=== PATIENT | male | born 1970 | race African-American/Black ===

== ENCOUNTER 2020-07-27 21:05 | Inpatient (IN) ==
[2020-07-27] MEDS: 0.9 % Sodium Chloride 1,000 ML IVC SCH ×2 (22:04→22:51)
[2020-07-27 22:06] LABS: VBG HCO3 26 mEq/L (21-27); VBG PCO2 44 mmHg (41-51); VBG PH 7.39 pH Units (7.32-7.42); VBG PO2 30 mmHg (25-50)
[2020-07-27 22:06] LABS: Basophils % 0.2 %; Eosinophils % 0.1 %; Hematocrit 45.6 % (37.5-50.1); Hemoglobin 15.3 g/dL (12.9-16.9); Immature Granulocytes % 0.5 % (0-4); Lymphocytes # 0.9 K/mcL (0.6-4.6); Lymphocytes % 6.8 %; Mean Corpuscular HGB Conc 33.6 g/dL (31.6-35.5); Mean Corpuscular Hemoglobin 29.4 pg (28.0-33.3); Mean Corpuscular Volume 87.5 fL (83.0-100.0); Mean Platelet Volume 9.3 fL (9.4-12.4); Monocytes % 7.8 %; Neutrophils # 10.9 K/mcL (1.6-8.9); Platelet Count 267 K/mcL (140-400); Red Blood Count 5.21 M/mcL (4.19-5.50); Red Cell Distribution Width 12.5 % (11.5-14.5); Segmented Neutrophils % 84.6 %; White Blood Count 12.9 K/mcL (4.3-11.1)
[2020-07-27 22:26] LABS: Alanine Aminotransferase 26 Units/L (7-52); Albumin/Globulin Ratio 1.2 (1.1-2.2); Alkaline Phosphatase 75 Units/L (34-104); Aspartate Amino Transferase 18 Units/L (13-39); BUN/Creatinine Ratio 10 (6-26); Bilirubin,Total 0.5 mg/dL (0.3-1.0); Blood Urea Nitrogen 10 mg/dL (6-20); Calcium 9.5 mg/dL (8.6-10.3); Carbon Dioxide 24 mEq/L (23-29); Chloride 97 mEq/L (98-107); Globulin 3.3 g/dL (2.4-3.5); Glucose 389 mg/dL (70-105); Magnesium 1.6 mg/dL (1.6-2.6); Osmolality,Calculated 289 (280-300); Potassium 3.9 mEq/L (3.5-5.1); Sodium 132 mEq/L (136-145); Total Protein 7.3 g/dL (6.4-8.9); Troponin I < 0.03 ng/mL (< 0.04); eGFR For African Americans > 60 (> 60); eGFR For Non-African Americans > 60 (> 60)
[2020-07-27] MEDS ORDERED: Acetaminophen 325 MG TABLET PO ONE (22:49)
[2020-07-27 22:58] LABS: Bacteria,Urine Few per hpf (None-Few); Bilirubin,Urine Negative (Negative); Blood,Urine Negative (Negative); Clarity,Urine Clear (Clear); Color,Urine Light-Yellow (Yellow); Glucose,Urine (UA) >=1000 mg/dL (Normal); Ketones,Urine Negative (Negative); Leukocyte Esterase,Urine Negative (Negative); Mucus,Urine Few per lpf (None-Few); Nitrite,Urine Negative (Negative); Protein,Urine Negative (Neg-Trace); RBC,Urine 0-3 per hpf (0-3); Specific Gravity,Urine > 1.030 (1.010-1.025); Urobilinogen,Urine Normal (Normal); WBC,Urine 0-3 per hpf (0-3)
[2020-07-27 23:11] LABS: Adenovirus Not Detected (Not Detect); Bordetella Pertussis Not Detected (Not Detect); Chlamydophila pneumoniae Not Detected (Not Detect); Coronavirus 229E Not Detected (Not Detect); Coronavirus HKU1 Not Detected (Not Detect); Coronavirus NL63 Not Detected (Not Detect); Coronavirus OC43 Not Detected (Not Detect); Human Metapneumovirus Not Detected (Not Detect); Human Rhinovirus/Enterovirus Not Detected (Not Detect); Influenza A Subtype 2009 H1 Not Detected (Not Detect); Influenza B Not Detected (Not Detect); Mycoplasma pneumoniae Not Detected (Not Detect); Parainfluenza Virus 1 Not Detected (Not Detect); Parainfluenza Virus 2 Not Detected (Not Detect); Parainfluenza Virus 3 Not Detected (Not Detect); Parainfluenza Virus 4 Not Detected (Not Detect); Respiratory Syncytial Virus Not Detected (Not Detect); SARS-CoV-2 Not Detected (Not Detect)
[2020-07-28] MEDS ORDERED: 0.9 % Sodium Chloride 1,000 ML IVC ONE (01:33)
[2020-07-28] MEDS ORDERED: Isovue-370 500 ML BOTTLE IVP ONE ×2 (02:35→05:59)
[2020-07-28] MEDS ORDERED: Acetaminophen 325 MG TABLET PO PRN (04:28)
[2020-07-28] MEDS ORDERED: Naloxone 0.4 MG/ML INJ IVP PRN (04:28)
[2020-07-28] MEDS ORDERED: *HR* Dextrose 50 % in Water (Vial) 50 ML VIAL IVP PRN ×2 (05:27→19:14)
[2020-07-28] MEDS ORDERED: Dextrose Gel 15 GM/37.5 ML TUBE PO PRN ×4 (05:27→19:14)
[2020-07-28] MEDS ORDERED: Insulin DETEMIR 100 UNIT/ML X5UNITS SQ STA (05:27)
[2020-07-28] MEDS ORDERED: D5% in Water 1,000 ML IVC PRN ×2 (05:27→19:14)
[2020-07-28] MEDS: 0.9 % Sodium Chloride 1,000 ML IVC SCH ×3 (05:47→21:20)
[2020-07-28 05:51] LABS: Basophils % 0.2 %; Hematocrit 44.5 % (37.5-50.1); Hemoglobin 14.2 g/dL (12.9-16.9); Immature Granulocytes % 0.6 % (0-4); Lymphocytes # 1.2 K/mcL (0.6-4.6); Lymphocytes % 8.7 %; Mean Corpuscular HGB Conc 31.9 g/dL (31.6-35.5); Mean Corpuscular Hemoglobin 28.2 pg (28.0-33.3); Mean Corpuscular Volume 88.3 fL (83.0-100.0); Mean Platelet Volume 9.3 fL (9.4-12.4); Monocytes # 1.2 K/mcL (0.0-1.3); Monocytes % 8.8 %; Neutrophils # 11.5 K/mcL (1.6-8.9); Platelet Count 235 K/mcL (140-400); Red Blood Count 5.04 M/mcL (4.19-5.50); Red Cell Distribution Width 12.5 % (11.5-14.5); Segmented Neutrophils % 81.7 %; White Blood Count 14.1 K/mcL (4.3-11.1)
[2020-07-28] MEDS ORDERED: Ampicillin/Sulbactam 3,000 MG in 0.9 % Sodium Chloride Mini Bag 100 ML IVPB SCH (06:00)
[2020-07-28 06:13] LABS: BUN/Creatinine Ratio 11 (6-26); Blood Urea Nitrogen 9 mg/dL (6-20); Calcium 8.8 mg/dL (8.6-10.3); Carbon Dioxide 25 mEq/L (23-29); Chloride 102 mEq/L (98-107); Glucose 251 mg/dL (70-105); Osmolality,Calculated 287 (280-300); Potassium 3.6 mEq/L (3.5-5.1); Sodium 135 mEq/L (136-145); eGFR For African Americans > 60 (> 60); eGFR For Non-African Americans > 60 (> 60)
[2020-07-28] MEDS: *HR* Heparin 5,000 UNIT/ML VIAL SQ SCH ×2 (06:28→17:27)
[2020-07-28] MEDS ORDERED: cefTRIAXone 2,000 MG in Water for inj. (sterile) 20 ML IVP SCH (07:00)
[2020-07-28] MEDS ORDERED: Vancomycin 1,500 MG/265 ML IV.SOLN IVPB ONE (07:14)
[2020-07-28 08:33] LABS: C-Reactive Protein 107 mg/L (Less than 10)
[2020-07-28 08:51] LABS: Estimated Average Glucose 312 mg/dl
[2020-07-28] MEDS: hydroCHLOROthiazide 25 MG TABLET PO SCH (10:30)
[2020-07-28] MEDS: lisinopriL 20 MG TABLET PO SCH (10:30)
[2020-07-28] MEDS: atenoloL 50 MG TABLET PO SCH (10:30)
[2020-07-28] MEDS: Insulin LISPRO 300 UNITS/3 ML VIAL SQ SCH ×4 (10:30→21:18)
[2020-07-28] MEDS ORDERED: Acetaminophen IV 1,000 MG/100 ML INFUS..BTL IVPB ONE (10:37)
[2020-07-28] MEDS ORDERED: Dexamethasone 4 MG/ML VIAL IVP ONE (11:16)
[2020-07-28] MEDS: Ampicillin/Sulbactam 3,000 MG in 0.9 % Sodium Chloride Mini Bag 100 ML IVPB SCH ×2 (12:13→17:27)
[2020-07-28] MEDS: Pantoprazole 40 MG VIAL IVP SCH (17:26)
[2020-07-28] MEDS: Dexamethasone 4 MG/ML VIAL IVP SCH (17:26)
[2020-07-28] MEDS ORDERED: Vancomycin 1,500 MG/265 ML IV.SOLN IVPB SCH (21:00)
[2020-07-28] MEDS ORDERED: Insulin LISPRO 300 UNITS/3 ML VIAL SQ SCH ×2 (21:00)
[2020-07-28] MEDS ORDERED: Insulin DETEMIR 100 UNIT/ML X5UNITS SQ SCH ×3 (21:00)
[2020-07-29] MEDS: Dexamethasone 4 MG/ML VIAL IVP SCH ×2 (00:10→06:03)
[2020-07-29] MEDS: 0.9 % Sodium Chloride 1,000 ML IVC SCH ×2 (00:10→10:00)
[2020-07-29] MEDS: Ampicillin/Sulbactam 3,000 MG in 0.9 % Sodium Chloride Mini Bag 100 ML IVPB SCH ×3 (00:11→13:37)
[2020-07-29] MEDS: Pantoprazole 40 MG VIAL IVP SCH (06:03)
[2020-07-29] MEDS: *HR* Heparin 5,000 UNIT/ML VIAL SQ SCH (06:10)
[2020-07-29] MEDS: hydroCHLOROthiazide 25 MG TABLET PO SCH (09:06)
[2020-07-29] MEDS: atenoloL 50 MG TABLET PO SCH (09:06)
[2020-07-29] MEDS: lisinopriL 20 MG TABLET PO SCH (09:06)
[2020-07-29] MEDS: Insulin LISPRO 300 UNITS/3 ML VIAL SQ SCH ×2 (09:06→13:36)
[2020-07-29 09:50] LABS: Basophils % 0.1 %; Hematocrit 44.2 % (37.5-50.1); Hemoglobin 14.4 g/dL (12.9-16.9); Immature Granulocytes % 0.5 % (0-4); Lymphocytes # 1.4 K/mcL (0.6-4.6); Mean Corpuscular HGB Conc 32.6 g/dL (31.6-35.5); Mean Corpuscular Hemoglobin 28.4 pg (28.0-33.3); Mean Corpuscular Volume 87.2 fL (83.0-100.0); Mean Platelet Volume 9.7 fL (9.4-12.4); Monocytes # 0.9 K/mcL (0.0-1.3); Monocytes % 4.6 %; Neutrophils # 17.6 K/mcL (1.6-8.9); Platelet Count 243 K/mcL (140-400); Red Blood Count 5.07 M/mcL (4.19-5.50); Red Cell Distribution Width 12.7 % (11.5-14.5); Segmented Neutrophils % 87.8 %
[2020-07-29 10:02] LABS: BUN/Creatinine Ratio 20 (6-26); Blood Urea Nitrogen 12 mg/dL (6-20); Calcium 9.1 mg/dL (8.6-10.3); Carbon Dioxide 24 mEq/L (23-29); Chloride 104 mEq/L (98-107); Glucose 244 mg/dL (70-105); Osmolality,Calculated 296 (280-300); Potassium 3.9 mEq/L (3.5-5.1); Sodium 139 mEq/L (136-145); eGFR For African Americans > 60 (> 60); eGFR For Non-African Americans > 60 (> 60)
[2020-07-29 11:27] VITALS: BP 126/83
[2020-07-29] MEDS ORDERED: Dexamethasone 4 MG/ML VIAL IVP SCH (16:00)
== END 2020-07-29 16:28 | disposition home or self-care (01) | DRG 720 ==
LOC: EMEROOARM 21:05 → CDU 21:05 → SUATTDRO 07-28 03:42 → CDU 07-28 04:02 → SUATTDRO 07-28 12:55 → 3ANU 07-28 18:36
PROVIDERS: ADMIT Internal Medicine; ATTEND Student in an Organized Health Care Education/Training Program

== ENCOUNTER 2020-12-05 21:50 | Observation (INO) ==
[2020-12-05] MEDS ORDERED: cefTRIAXone 1,000 MG in Water for inj. (sterile) 10 ML IVP ONE (22:02)
[2020-12-05] MEDS ORDERED: Azithromycin 500 MG in 0.9 % Sodium Chloride 250 ML IVPB ONE (22:02)
[2020-12-05 22:31] LABS: Basophils % 0.3 %; Eosinophils % 0.3 %; Hemoglobin 13.9 g/dL (12.9-16.9); Immature Granulocytes % 0.5 % (0-4); Lymphocytes # 1.7 K/mcL (0.6-4.6); Lymphocytes % 14.3 %; Mean Corpuscular HGB Conc 33.9 g/dL (31.6-35.5); Mean Corpuscular Hemoglobin 28.8 pg (28.0-33.3); Mean Corpuscular Volume 84.9 fL (83.0-100.0); Mean Platelet Volume 9.3 fL (9.4-12.4); Monocytes % 8.5 %; Neutrophils # 9.1 K/mcL (1.6-8.9); Platelet Count 279 K/mcL (140-400); Red Blood Count 4.83 M/mcL (4.19-5.50); Red Cell Distribution Width 12.4 % (11.5-14.5); Segmented Neutrophils % 76.1 %; White Blood Count 11.9 K/mcL (4.3-11.1)
[2020-12-05 22:40] LABS: VBG HCO3 23 mEq/L (21-27); VBG PCO2 31 mmHg (41-51); VBG PH 7.47 pH Units (7.32-7.42); VBG PO2 71 mmHg (25-50)
[2020-12-05 22:57] LABS: BUN/Creatinine Ratio 14 (6-26); Blood Urea Nitrogen 13 mg/dL (6-20); Calcium 9.3 mg/dL (8.6-10.3); Carbon Dioxide 24 mEq/L (23-29); Chloride 103 mEq/L (98-107); Glucose 282 mg/dL (70-105); Magnesium 1.5 mg/dL (1.6-2.6); Osmolality,Calculated 288 (280-300); Phosphorous < 1.0 mg/dL (2.7-4.5); Potassium 3.8 mEq/L (3.5-5.1); Sodium 134 mEq/L (136-145); eGFR For African Americans > 60 (> 60); eGFR For Non-African Americans > 60 (> 60)
[2020-12-05] MEDS: 0.9 % Sodium Chloride 1,000 ML IVC SCH (23:01)
[2020-12-05] MEDS ORDERED: Potassium Phosphate 44 MEQ in 0.9 % Sodium Chloride 250 ML IVPB ONE (23:08)
[2020-12-05] MEDS ORDERED: 0.9 % Sodium Chloride 1,000 ML IVC ONE (23:37)
[2020-12-05 23:50] LABS: Adenovirus Not Detected (Not Detect); Bordetella Pertussis Not Detected (Not Detect); Chlamydophila pneumoniae Not Detected (Not Detect); Coronavirus 229E Not Detected (Not Detect); Coronavirus HKU1 Not Detected (Not Detect); Coronavirus NL63 Not Detected (Not Detect); Coronavirus OC43 Not Detected (Not Detect); Human Metapneumovirus Not Detected (Not Detect); Human Rhinovirus/Enterovirus Not Detected (Not Detect); Influenza A Subtype 2009 H1 Not Detected (Not Detect); Influenza B Not Detected (Not Detect); Mycoplasma pneumoniae Not Detected (Not Detect); Parainfluenza Virus 1 Not Detected (Not Detect); Parainfluenza Virus 2 Not Detected (Not Detect); Parainfluenza Virus 3 Not Detected (Not Detect); Parainfluenza Virus 4 Not Detected (Not Detect); Respiratory Syncytial Virus Not Detected (Not Detect); SARS-CoV-2 Not Detected (Not Detect)
[2020-12-06] MEDS ORDERED: Ibuprofen 400 MG TABLET PO ONE (00:09)
[2020-12-06 01:03] LABS: Bilirubin,Urine Negative (Negative); Blood,Urine Negative (Negative); Clarity,Urine Clear (Clear); Color,Urine Yellow (Yellow); Glucose,Urine (UA) >=1000 mg/dL (Normal); Ketones,Urine Trace mg/dL (Negative); Leukocyte Esterase,Urine Negative (Negative); Mucus,Urine Few per lpf (None-Few); Nitrite,Urine Negative (Negative); Protein,Urine 30 mg/dL (Neg-Trace); Specific Gravity,Urine > 1.030 (1.010-1.025); WBC,Urine 0-3 per hpf (0-3)
[2020-12-06] MEDS ORDERED: Isovue-370 500 ML BOTTLE IVP ONE (01:38)
[2020-12-06] MEDS ORDERED: Naloxone 0.4 MG/ML INJ IVP PRN (01:45)
[2020-12-06] MEDS ORDERED: Ondansetron 4 MG/2 ML VIAL IVP PRN (01:45)
[2020-12-06] MEDS ORDERED: *HR* Dextrose 50 % in Water (Vial) 50 ML VIAL IVP PRN (02:34)
[2020-12-06] MEDS ORDERED: D5% in Water 1,000 ML IVC PRN (02:34)
[2020-12-06] MEDS ORDERED: Dextrose Gel 15 GM/37.5 ML TUBE PO PRN ×2 (02:34)
[2020-12-06] MEDS: 0.9 % Sodium Chloride 1,000 ML IVC SCH (03:25)
[2020-12-06] MEDS: Ringers Solution, Lactated 1,000 ML IVC SCH ×2 (05:03→15:04)
[2020-12-06 06:21] LABS: Basophils % 0.3 %; Eosinophils % 0.1 %; Hemoglobin 13.2 g/dL (12.9-16.9); Immature Granulocytes % 0.5 % (0-4); Lymphocytes # 1.4 K/mcL (0.6-4.6); Lymphocytes % 11.6 %; Mean Corpuscular HGB Conc 33.8 g/dL (31.6-35.5); Mean Corpuscular Hemoglobin 28.8 pg (28.0-33.3); Mean Platelet Volume 8.8 fL (9.4-12.4); Monocytes # 1.2 K/mcL (0.0-1.3); Monocytes % 9.6 %; Neutrophils # 9.3 K/mcL (1.6-8.9); Platelet Count 246 K/mcL (140-400); Red Blood Count 4.59 M/mcL (4.19-5.50); Red Cell Distribution Width 12.6 % (11.5-14.5); Segmented Neutrophils % 77.9 %; White Blood Count 11.9 K/mcL (4.3-11.1)
[2020-12-06] MEDS: *HR* Heparin 5,000 UNIT/ML VIAL SQ SCH ×2 (06:36→17:43)
[2020-12-06 06:37] LABS: Alanine Aminotransferase 14 Units/L (7-52); Albumin 3.6 g/dL (3.5-5.7); Albumin/Globulin Ratio 1.3 (1.1-2.2); Alkaline Phosphatase 55 Units/L (34-104); Aspartate Amino Transferase 14 Units/L (13-39); BUN/Creatinine Ratio 14 (6-26); Bilirubin,Direct 0.1 mg/dL (0.0-0.2); Bilirubin,Indirect 0.3 mg/dL (0.0-1.0); Bilirubin,Total 0.4 mg/dL (0.3-1.0); Blood Urea Nitrogen 11 mg/dL (6-20); Calcium 8.3 mg/dL (8.6-10.3); Carbon Dioxide 23 mEq/L (23-29); Chloride 105 mEq/L (98-107); Globulin 2.8 g/dL (2.4-3.5); Glucose 180 mg/dL (70-105); Osmolality,Calculated 282 (280-300); Potassium 3.4 mEq/L (3.5-5.1); Sodium 134 mEq/L (136-145); Total Protein 6.4 g/dL (6.4-8.9); eGFR For African Americans > 60 (> 60); eGFR For Non-African Americans > 60 (> 60)
[2020-12-06] MEDS: Doxycycline 100 MG CAPSULE PO SCH ×2 (08:29→22:07)
[2020-12-06] MEDS: Piperacillin/Tazobactam 3.375 GM in 0.9 % Sodium Chloride Mini Bag 100 ML IVPB SCH ×2 (08:29→15:04)
[2020-12-06] MEDS: Insulin LISPRO 300 UNITS/3 ML VIAL SUBQ SCH ×3 (08:30→17:44)
[2020-12-06] MEDS ORDERED: cefTRIAXone 2,000 MG in Water for inj. (sterile) 20 ML IVP SCH (09:00)
[2020-12-06 10:15] LABS: Amphetamine Screen,Urine Positive ng/mL (Cutoff=1000); Barbiturate Screen,Urine Negative ng/mL (Cutoff=200); Benzodiazepines Screen,Urine Negative ng/mL (Cutoff=200); Cannabinoid Screen,Urine Negative ng/mL (Cutoff = 50); Cocaine Screen,Urine Negative ng/mL (Cutoff= 300); Opiate Screen,Urine Negative ng/mL (Cutoff=300); Phencyclidine Screen,Urine Negative ng/mL (Cutoff=25)
[2020-12-06] MEDS: MethylPREDNISolone 40 MG/ML VIAL IVP SCH (15:03)
[2020-12-06] MEDS ORDERED: Loratadine 10 MG TABLET PO PRN (15:59)
[2020-12-06] MEDS: lisinopriL 20 MG TABLET PO SCH (16:09)
[2020-12-06] MEDS: atenoloL 50 MG TABLET PO SCH (16:09)
[2020-12-06] MEDS ORDERED: Azithromycin 500 MG in 0.9 % Sodium Chloride 250 ML IVPB SCH (18:00)
[2020-12-06] MEDS ORDERED: NON-FORMULARY MEDICATION 1 EACH EACH (Insulin Detemir [Levemir Flextouch] 50 UNIT) SQ SCH (21:00)
[2020-12-06] MEDS ORDERED: Insulin DETEMIR 100 UNIT/ML X5UNITS SUBQ SCH (21:00)
[2020-12-06] MEDS ORDERED: NON-FORMULARY MEDICATION 1 EACH EACH (Insulin Detemir [Levemir Flextouch] 30 UNIT) SQ SCH (21:00)
[2020-12-06] MEDS: Insulin DETEMIR 100 UNIT/ML X5UNITS SUBQ SCH (22:07)
[2020-12-07] MEDS ORDERED: Chloraseptic Spray 177 ML BOTTLE MM PRN (01:02)
[2020-12-07] MEDS: MethylPREDNISolone 40 MG/ML VIAL IVP SCH ×3 (01:05→17:20)
[2020-12-07] MEDS: Piperacillin/Tazobactam 3.375 GM in 0.9 % Sodium Chloride Mini Bag 100 ML IVPB SCH ×3 (01:06→17:21)
[2020-12-07 02:40] LABS: Hematocrit 40.6 % (37.5-50.1); Hemoglobin 13.5 g/dL (12.9-16.9); Mean Corpuscular HGB Conc 33.3 g/dL (31.6-35.5); Mean Corpuscular Hemoglobin 28.8 pg (28.0-33.3); Mean Corpuscular Volume 86.8 fL (83.0-100.0); Mean Platelet Volume 9.4 fL (9.4-12.4); Platelet Count 272 K/mcL (140-400); Red Blood Count 4.68 M/mcL (4.19-5.50); Red Cell Distribution Width 12.6 % (11.5-14.5); White Blood Count 13.1 K/mcL (4.3-11.1)
[2020-12-07 02:57] LABS: BUN/Creatinine Ratio 11 (6-26); Blood Urea Nitrogen 9 mg/dL (6-20); Carbon Dioxide 23 mEq/L (23-29); Chloride 103 mEq/L (98-107); Glucose 268 mg/dL (70-105); Magnesium 1.6 mg/dL (1.6-2.6); Osmolality,Calculated 288 (280-300); Phosphorous 3.5 mg/dL (2.7-4.5); Potassium 4.3 mEq/L (3.5-5.1); Sodium 135 mEq/L (136-145); eGFR For African Americans > 60 (> 60); eGFR For Non-African Americans > 60 (> 60)
[2020-12-07] MEDS: *HR* Heparin 5,000 UNIT/ML VIAL SQ SCH ×2 (06:27→17:20)
[2020-12-07] MEDS: Insulin LISPRO 300 UNITS/3 ML VIAL SUBQ SCH ×3 (08:52→17:20)
[2020-12-07] MEDS: Doxycycline 100 MG CAPSULE PO SCH ×2 (08:54→21:40)
[2020-12-07] MEDS: atenoloL 50 MG TABLET PO SCH (08:54)
[2020-12-07] MEDS: lisinopriL 20 MG TABLET PO SCH (09:03)
[2020-12-07] MEDS: Insulin DETEMIR 100 UNIT/ML X5UNITS SUBQ SCH (21:41)
[2020-12-07] MEDS ORDERED: Insulin LISPRO 300 UNITS/3 ML VIAL SUBQ SCH (21:45)
[2020-12-08] MEDS: Piperacillin/Tazobactam 3.375 GM in 0.9 % Sodium Chloride Mini Bag 100 ML IVPB SCH ×2 (00:24→07:43)
[2020-12-08] MEDS: MethylPREDNISolone 40 MG/ML VIAL IVP SCH ×2 (00:24→07:44)
[2020-12-08] MEDS: *HR* Heparin 5,000 UNIT/ML VIAL SQ SCH (05:35)
[2020-12-08 05:39] VITALS: BP 148/86
[2020-12-08] MEDS: lisinopriL 20 MG TABLET PO SCH (07:42)
[2020-12-08] MEDS: Doxycycline 100 MG CAPSULE PO SCH (07:42)
[2020-12-08] MEDS: atenoloL 50 MG TABLET PO SCH (07:43)
[2020-12-08] MEDS: Insulin LISPRO 300 UNITS/3 ML VIAL SUBQ SCH ×2 (07:43→11:36)
== END 2020-12-08 16:22 | disposition home or self-care (01) ==
LOC: 3ANU 21:50 → EMEROOARM 21:50 → SUATTDRO 12-06 02:17 → 3ANU 12-06 03:45
PROVIDERS: ADMIT Internal Medicine; ATTEND Internal Medicine

== ENCOUNTER 2021-08-06 13:54 | Inpatient (IN) ==
[2021-08-06 14:31] LABS: Basophils % 0.4 %; Eosinophils # 0.1 K/mcL (0.0-0.6); Eosinophils % 0.8 %; Hematocrit 49.9 % (37.5-50.1); Hemoglobin 16.6 g/dL (12.9-16.9); Immature Granulocytes % 0.2 % (0-4); Lymphocytes % 28.9 %; Mean Corpuscular HGB Conc 33.3 g/dL (31.6-35.5); Mean Corpuscular Hemoglobin 28.9 pg (28.0-33.3); Mean Corpuscular Volume 86.8 fL (83.0-100.0); Monocytes # 0.8 K/mcL (0.0-1.3); Monocytes % 8.1 %; Neutrophils # 6.4 K/mcL (1.6-8.9); Platelet Count 375 K/mcL (140-400); Red Blood Count 5.75 M/mcL (4.19-5.50); Red Cell Distribution Width 12.5 % (11.5-14.5); Segmented Neutrophils % 61.6 %; White Blood Count 10.3 K/mcL (4.3-11.1)
[2021-08-06 14:52] LABS: Acetaminophen < 10 mcg/mL (10-20); BUN/Creatinine Ratio 15 (6-26); Blood Urea Nitrogen 14 mg/dL (6-20); Carbon Dioxide 26 mEq/L (23-29); Chloride 101 mEq/L (98-107); Cholesterol 154 mg/dL (< 200); Glucose 328 mg/dL (70-105); HDL Cholesterol 51 mg/dL (40-59); LDL Cholesterol,Calculated 79 mg/dL (< 100); Osmolality,Calculated 291 (280-300); Potassium 4.4 mEq/L (3.5-5.1); Salicylate < 2.5 mg/dL (15.0-30.0); Sodium 134 mEq/L (136-145); Triglycerides 119 mg/dL (< 150); eGFR For African Americans > 60 (> 60); eGFR For Non-African Americans > 60 (> 60)
[2021-08-06 15:09] LABS: Ethanol < 10 mg/dL (Less than 10)
[2021-08-06 15:26] LABS: Bilirubin,Urine Negative (Negative); Blood,Urine Trace (Negative); Clarity,Urine Clear (Clear); Color,Urine Light-Yellow (Yellow); Glucose,Urine (UA) >=1000 mg/dL (Normal); Ketones,Urine 20 mg/dL (Negative); Leukocyte Esterase,Urine Negative (Negative); Mucus,Urine Few per lpf (None-Few); Nitrite,Urine Negative (Negative); Protein,Urine Trace mg/dL (Neg-Trace); RBC,Urine 0-3 per hpf (0-3); Specific Gravity,Urine > 1.030 (1.010-1.025); Urobilinogen,Urine Normal (Normal); WBC,Urine 0-3 per hpf (0-3)
[2021-08-06] MEDS: 0.9 % Sodium Chloride 1,000 ML IVC SCH ×2 (15:31→16:14)
[2021-08-06 15:38] LABS: Amphetamine Screen,Urine Positive ng/mL (Cutoff=1000); Barbiturate Screen,Urine Negative ng/mL (Cutoff=200); Benzodiazepines Screen,Urine Negative ng/mL (Cutoff=200); Cannabinoid Screen,Urine Negative ng/mL (Cutoff = 50); Cocaine Screen,Urine Negative ng/mL (Cutoff= 300); Opiate Screen,Urine Negative ng/mL (Cutoff=300); Phencyclidine Screen,Urine Negative ng/mL (Cutoff=25)
[2021-08-06 16:07] LABS: Estimated Average Glucose 235 mg/dl; Hemoglobin A1C 9.8 %
[2021-08-06 19:59] LABS: Influenza A PCR Negative (Negative); Influenza B PCR Negative (Negative); Resp. Syncytial Virus PCR Negative (Negative)
[2021-08-06 20:01] LABS: SARS-CoV-2 by PCR (In House) Negative (Negative)
[2021-08-06] MEDS ORDERED: Acetaminophen 325 MG TABLET PO PRN (20:55)
[2021-08-06] MEDS ORDERED: Haloperidol Lactate 5 MG/ML VIAL IM PRN (20:55)
[2021-08-06] MEDS ORDERED: Ibuprofen 400 MG TABLET PO PRN (20:55)
[2021-08-06] MEDS ORDERED: haloperidoL 5 MG TABLET PO PRN (20:55)
[2021-08-06] MEDS ORDERED: hydrOXYzine pamoate 25 MG CAPSULE PO PRN (20:55)
[2021-08-06] MEDS ORDERED: *HR* LORazepam 2 MG/ML VIAL IM PRN (20:55)
[2021-08-06] MEDS ORDERED: *HR* LORazepam 1 MG TABLET PO PRN (20:55)
[2021-08-06] MEDS: QUEtiapine Fumarate 25 MG TABLET PO PRN (22:02)
[2021-08-07] MEDS: Insulin DETEMIR 100 UNIT/ML X5UNITS SUBQ SCH ×2 (00:23→21:14)
[2021-08-07] MEDS ORDERED: Mag Hydrox/Al Hydrox/Simeth 30 ML UDC PO PRN (08:25)
[2021-08-07] MEDS ORDERED: MOM Conc 10 ML UD.LIQ PO PRN (08:25)
[2021-08-07] MEDS ORDERED: *HR* GlyBURIDE 5 MG TABLET PO SCH (09:00)
[2021-08-07] MEDS ORDERED: lisinopriL 20 MG TABLET PO SCH (09:00)
[2021-08-07] MEDS ORDERED: ARIPiprazole 5 MG TABLET PO SCH (14:00)
[2021-08-07] MEDS ORDERED: hydroCHLOROthiazide 25 MG TABLET PO SCH (14:30)
[2021-08-07] MEDS ORDERED: QUEtiapine Fumarate 25 MG TABLET PO SCH (21:00)
[2021-08-07] MEDS: QUEtiapine Fumarate 25 MG TABLET PO PRN (21:44)
[2021-08-08] MEDS ORDERED: Isovue-370 500 ML BOTTLE IVP ONE (06:53)
[2021-08-08 06:58] VITALS: BP 110/80; PULSE 77; TEMP 97.8; O2SAT 99
== END 2021-08-08 07:00 | disposition short-term general hospital (02) | DRG 751 ==
LOC: EMEROOARM 13:54 → 1ANU 20:54
PROVIDERS: ADMIT Psychiatry & Neurology Psychiatry; ATTEND Psychiatry & Neurology Psychiatry

== ENCOUNTER 2021-08-08 07:46 | Observation (INO) ==
[2021-08-08] MEDS ORDERED: Naloxone 0.4 MG/ML INJ IVP PRN (08:31)
[2021-08-08] MEDS ORDERED: Ondansetron 4 MG/2 ML VIAL IVP PRN (08:31)
[2021-08-08] MEDS ORDERED: Perflutren Lipid Microsphere 1.3 ML in 0.9 % Sodium Chloride 8.7 ML IVP PRN (08:37)
[2021-08-08] MEDS ORDERED: Dextrose Gel 15 GM/37.5 ML TUBE PO PRN ×2 (08:47)
[2021-08-08] MEDS ORDERED: D5% in Water 1,000 ML IVC PRN (08:47)
[2021-08-08] MEDS ORDERED: *HR* Dextrose 50 % in Water (Syg) 50 ML SYRINGE IVP PRN (08:47)
[2021-08-08] MEDS: Insulin LISPRO 300 UNITS/3 ML VIAL SUBQ SCH ×3 (09:00→16:18)
[2021-08-08 09:41] LABS: Basophils % 0.4 %; Eosinophils # 0.2 K/mcL (0.0-0.6); Eosinophils % 2.1 %; Hematocrit 44.7 % (37.5-50.1); Immature Granulocytes % 0.2 % (0-4); Lymphocytes # 4.2 K/mcL (0.6-4.6); Lymphocytes % 43.8 %; Mean Corpuscular HGB Conc 33.3 g/dL (31.6-35.5); Mean Corpuscular Hemoglobin 29.2 pg (28.0-33.3); Mean Corpuscular Volume 87.6 fL (83.0-100.0); Mean Platelet Volume 9.5 fL (9.4-12.4); Monocytes # 0.8 K/mcL (0.0-1.3); Monocytes % 7.8 %; Neutrophils # 4.4 K/mcL (1.6-8.9); Platelet Count 351 K/mcL (140-400); Red Cell Distribution Width 12.6 % (11.5-14.5); Segmented Neutrophils % 45.7 %; White Blood Count 9.7 K/mcL (4.3-11.1)
[2021-08-08 09:43] LABS: Hemoglobin 14.9 g/dL (12.9-16.9)
[2021-08-08 09:48] LABS: INR 1.2; Prothrombin Time 13.5 Seconds (9.4-12.1)
[2021-08-08 09:54] LABS: Beta-Hydroxybutyric Acid 0.31 mmol/L (0.02-0.27)
[2021-08-08 09:56] LABS: BUN/Creatinine Ratio 12 (6-26); Blood Urea Nitrogen 12 mg/dL (6-20); Calcium 9.6 mg/dL (8.6-10.3); Carbon Dioxide 23 mEq/L (23-29); Chloride 102 mEq/L (98-107); Glucose 276 mg/dL (70-105); Magnesium 1.9 mg/dL (1.6-2.6); Osmolality,Calculated 290 (280-300); Potassium 4.3 mEq/L (3.5-5.1); Sodium 135 mEq/L (136-145); eGFR For African Americans > 60 (> 60); eGFR For Non-African Americans > 60 (> 60)
[2021-08-08 09:57] LABS: Troponin I < 0.03 ng/mL (< 0.04)
[2021-08-08 10:01] LABS: Procalcitonin 0.03 ng/mL (0.00-0.15)
[2021-08-08 10:10] LABS: Thyroid Stimulating Hormone 0.654 mcIU/mL (0.340-5.600)
[2021-08-08] MEDS ORDERED: Loratadine 10 MG TABLET PO PRN (11:01)
[2021-08-08] MEDS ORDERED: Isovue-370 500 ML BOTTLE IVP ONE (11:27)
[2021-08-08 15:20] LABS: Hematocrit 44.9 % (37.5-50.1); Hemoglobin 15.1 g/dL (12.9-16.9)
[2021-08-08] MEDS: Acetaminophen 325 MG TABLET PO PRN (16:16)
[2021-08-08 21:00] LABS: Hematocrit 42.4 % (37.5-50.1); Hemoglobin 14.6 g/dL (12.9-16.9)
[2021-08-08] MEDS ORDERED: Insulin LISPRO 300 UNITS/3 ML VIAL SUBQ SCH (21:00)
[2021-08-09 03:05] LABS: Basophils % 0.3 %; Eosinophils # 0.1 K/mcL (0.0-0.6); Eosinophils % 1.5 %; Hematocrit 41.3 % (37.5-50.1); Hemoglobin 14.1 g/dL (12.9-16.9); Immature Granulocytes % 0.2 % (0-4); Lymphocytes # 2.8 K/mcL (0.6-4.6); Mean Corpuscular HGB Conc 34.1 g/dL (31.6-35.5); Mean Corpuscular Hemoglobin 29.7 pg (28.0-33.3); Mean Corpuscular Volume 87.1 fL (83.0-100.0); Monocytes # 0.8 K/mcL (0.0-1.3); Monocytes % 8.5 %; Neutrophils # 5.5 K/mcL (1.6-8.9); Platelet Count 288 K/mcL (140-400); Red Blood Count 4.74 M/mcL (4.19-5.50); Red Cell Distribution Width 12.2 % (11.5-14.5); Segmented Neutrophils % 59.5 %; White Blood Count 9.3 K/mcL (4.3-11.1)
[2021-08-09 03:23] LABS: BUN/Creatinine Ratio 16 (6-26); Blood Urea Nitrogen 13 mg/dL (6-20); Calcium 9.2 mg/dL (8.6-10.3); Carbon Dioxide 24 mEq/L (23-29); Chloride 101 mEq/L (98-107); Glucose 275 mg/dL (70-105); Magnesium 1.6 mg/dL (1.6-2.6); Osmolality,Calculated 286 (280-300); Potassium 3.9 mEq/L (3.5-5.1); Sodium 133 mEq/L (136-145); eGFR For African Americans > 60 (> 60); eGFR For Non-African Americans > 60 (> 60)
[2021-08-09 05:01] LABS: Estimated Average Glucose 232 mg/dl; Hemoglobin A1C 9.7 %
[2021-08-09] MEDS: Insulin LISPRO 300 UNITS/3 ML VIAL SUBQ SCH ×3 (08:43→16:48)
[2021-08-09] MEDS ORDERED: atenoloL 50 MG TABLET PO SCH (09:00)
[2021-08-09] MEDS ORDERED: lisinopriL 20 MG TABLET PO SCH (09:00)
[2021-08-09] MEDS ORDERED: hydroCHLOROthiazide 25 MG TABLET PO SCH (09:00)
[2021-08-09] MEDS: ARIPiprazole 5 MG TABLET PO SCH (12:16)
[2021-08-09] MEDS ORDERED: Lisinopril-HCTZ 20-12.5mg TABLET PO SCH (17:15)
[2021-08-09] MEDS: Lisinopril-HCTZ 20-12.5mg TABLET PO SCH (18:23)
[2021-08-09] MEDS: Acetaminophen 325 MG TABLET PO PRN (20:52)
[2021-08-09] MEDS ORDERED: Insulin DETEMIR 100 UNIT/ML X5UNITS SUBQ SCH (21:00)
[2021-08-09] MEDS ORDERED: Insulin LISPRO 300 UNITS/3 ML VIAL SUBQ SCH (21:00)
[2021-08-09] MEDS ORDERED: QUEtiapine Fumarate 25 MG TABLET PO SCH (21:00)
[2021-08-10] MEDS ORDERED: Menthol 1 EACH LOZENGE PO PRN (04:22)
[2021-08-10 05:53] LABS: BUN/Creatinine Ratio 12 (6-26); Blood Urea Nitrogen 8 mg/dL (6-20); Calcium 9.2 mg/dL (8.6-10.3); Carbon Dioxide 27 mEq/L (23-29); Chloride 101 mEq/L (98-107); Glucose 208 mg/dL (70-105); Osmolality,Calculated 284 (280-300); Potassium 3.8 mEq/L (3.5-5.1); Sodium 135 mEq/L (136-145); eGFR For African Americans > 60 (> 60); eGFR For Non-African Americans > 60 (> 60)
[2021-08-10] MEDS: Insulin LISPRO 300 UNITS/3 ML VIAL SUBQ SCH ×3 (07:47→15:43)
[2021-08-10] MEDS: ARIPiprazole 5 MG TABLET PO SCH (07:48)
[2021-08-10] MEDS: Lisinopril-HCTZ 20-12.5mg TABLET PO SCH (07:48)
[2021-08-10] MEDS: Acetaminophen 325 MG TABLET PO PRN (07:53)
[2021-08-10] MEDS ORDERED: lisinopriL 5 MG TABLET PO SCH (11:00)
[2021-08-10 14:03] VITALS: BP 127/77; PULSE 100; TEMP 99.3; O2SAT 98
[2021-08-10] MEDS ORDERED: Acetaminophen 325 MG TABLET PO PRN (16:22)
[2021-08-10] MEDS ORDERED: *HR* LORazepam 2 MG/ML VIAL IM PRN (16:22)
[2021-08-10] MEDS ORDERED: hydrOXYzine pamoate 25 MG CAPSULE PO PRN (16:22)
[2021-08-10] MEDS ORDERED: Mag Hydrox/Al Hydrox/Simeth 30 ML UDC PO PRN (16:22)
[2021-08-10] MEDS ORDERED: haloperidoL 5 MG TABLET PO PRN (16:22)
[2021-08-10] MEDS ORDERED: MOM Conc 10 ML UD.LIQ PO PRN (16:22)
[2021-08-10] MEDS ORDERED: Haloperidol Lactate 5 MG/ML VIAL IM PRN (16:22)
[2021-08-10] MEDS ORDERED: *HR* LORazepam 1 MG TABLET PO PRN (16:22)
[2021-08-10] MEDS ORDERED: QUEtiapine Fumarate 25 MG TABLET PO PRN (16:22)
[2021-08-10] MEDS ORDERED: Loratadine 10 MG TABLET PO PRN (16:26)
[2021-08-10] MEDS ORDERED: Insulin DETEMIR 100 UNIT/ML X5UNITS SUBQ SCH (21:00)
[2021-08-10] MEDS ORDERED: QUEtiapine Fumarate 25 MG TABLET PO SCH (21:00)
[2021-08-11] MEDS ORDERED: lisinopriL 5 MG TABLET PO SCH (09:00)
[2021-08-11] MEDS ORDERED: ARIPiprazole 5 MG TABLET PO SCH (09:00)
[2021-08-11] MEDS ORDERED: *HR* GlyBURIDE 5 MG TABLET PO SCH (09:00)
== END 2021-08-10 16:01 | disposition home or self-care (01) ==
LOC: 3ANU → SUATTDRO 07:52
PROVIDERS: ADMIT Pharmacist; ATTEND Internal Medicine

== ENCOUNTER 2021-08-10 16:02 | Inpatient (IN) ==
[2021-08-10] MEDS ORDERED: *HR* LORazepam 1 MG TABLET PO PRN (16:35)
[2021-08-10] MEDS ORDERED: *HR* LORazepam 2 MG/ML VIAL IM PRN (16:35)
[2021-08-10] MEDS ORDERED: Acetaminophen 325 MG TABLET PO PRN (16:35)
[2021-08-10] MEDS ORDERED: hydrOXYzine pamoate 25 MG CAPSULE PO PRN (16:35)
[2021-08-10] MEDS ORDERED: haloperidoL 5 MG TABLET PO PRN (16:35)
[2021-08-10] MEDS ORDERED: Haloperidol Lactate 5 MG/ML VIAL IM PRN (16:35)
[2021-08-10] MEDS ORDERED: QUEtiapine Fumarate 25 MG TABLET PO PRN (16:35)
[2021-08-10] MEDS ORDERED: Loratadine 10 MG TABLET PO PRN (16:38)
[2021-08-10] MEDS: QUEtiapine Fumarate 25 MG TABLET PO SCH (20:42)
[2021-08-10] MEDS ORDERED: Insulin DETEMIR 100 UNIT/ML X5UNITS SUBQ SCH (21:00)
[2021-08-10] MEDS: Insulin DETEMIR 100 UNIT/ML X5UNITS SUBQ SCH (22:42)
[2021-08-11] MEDS ORDERED: ARIPiprazole 5 MG TABLET PO SCH (09:00)
[2021-08-11] MEDS: lisinopriL 5 MG TABLET PO SCH (09:02)
[2021-08-11] MEDS: *HR* GlyBURIDE 5 MG TABLET PO SCH (09:02)
[2021-08-11] MEDS ORDERED: ARIPiprazole 5 MG TABLET PO ONE (10:57)
[2021-08-11] MEDS: QUEtiapine Fumarate 25 MG TABLET PO SCH (20:38)
[2021-08-11] MEDS: Insulin DETEMIR 100 UNIT/ML X5UNITS SUBQ SCH (20:39)
[2021-08-12 08:28] VITALS: BP 159/104; PULSE 100; TEMP 97.8; O2SAT 98
[2021-08-12] MEDS: *HR* GlyBURIDE 5 MG TABLET PO SCH (08:46)
[2021-08-12] MEDS: lisinopriL 5 MG TABLET PO SCH (08:46)
[2021-08-12] MEDS ORDERED: ARIPiprazole 10 MG TABLET PO SCH (09:00)
== END 2021-08-12 16:13 | disposition home or self-care (01) | DRG 751 ==
LOC: 1ANU 16:02
PROVIDERS: ADMIT Psychiatry & Neurology Psychiatry; ATTEND Psychiatry & Neurology Psychiatry